=== PATIENT | male | born 1950 ===

== ENCOUNTER 2017-10-13 05:05 | Day surgery (SDC) | payer MEDICARE, OTHER ==
[~2017-10-13] VITALS: Ht 175.3 cm; Wt 64.4 kg
[~2017-10-13 05:05] MED LIST: ASPI-1471 PO; CALC-852 PO; GABA-549 PO; HYDR-2966 PO; LISI-374 PO; OMEP10SU PO; TAMS0.4C70 PO; [UNRECOGNIZED DRUG - CODE] PO
[2017-10-13] MEDS ORDERED: ROPIVACAINE 0.2% 20 ML VIAL ONE (06:38)
[2017-10-13] MEDS ORDERED: BETAMETHASONE/ACETATE 6 MG/1ML ONE (06:38)
[2017-10-13] MEDS ORDERED: NEOMYCIN/POLYMYX/BACITR 30 GM TP ONE (06:38)
[2017-10-13] MEDS ORDERED: LIDOCAINE 1%MDV(*)200 MG/20 ML 1 ML ONE (06:38)
[2017-10-13] MEDS ORDERED: fentaNYL CITR 100 MCG/2 ML AMP ONE ×2 (07:36→12:57)
[2017-10-13 08:35] VITALS: BP 138/77
[2017-10-13] MEDS ORDERED: FAMOTIDINE 20 MG TAB PO ONE (09:30)
[2017-10-13] MEDS ORDERED: CELECOXIB 200 MG CAP PO ONE (09:30)
[2017-10-13] MEDS ORDERED: ceFAZolin(*) 1 GM VIAL 1 GM in NS(*) 0.9% 100 ML ADDVANT BAG 100 ML IVPB ONE (09:30)
[2017-10-13] MEDS ORDERED: MIDAZOLAM 2 MG/2 ML VIAL IVP PRN (09:30)
[2017-10-13] MEDS ORDERED: NORMOSOL R SOLN(*) 1000 ML BAG 1,000 ML IV PRN (09:30)
[2017-10-13] MEDS ORDERED: LIDOCAINE/SOD BICARB 8.4% SYR ID ONE (09:30)
[2017-10-13] MEDS ORDERED: ONDANSETRON 4 MG/2 ML VIAL ONE (10:19)
[2017-10-13] MEDS ORDERED: PROPOFOL EMUL(*) 10MG/ML 20 ML 20 ML ONE (10:19)
[2017-10-13] MEDS ORDERED: LIDOCAINE MPF 1% 5 ML VIAL ONE (10:19)
[2017-10-13] MEDS ORDERED: DEXAMETHASONE SOD PHOS 10MG/ML ONE (10:19)
[2017-10-13] MEDS ORDERED: ePHEDrine 25 MG/5 ML DISP.SYR IVP ONE (11:00)
[2017-10-13] MEDS ORDERED: HYDR-385 PO (13:06)
[2017-10-13] MEDS ORDERED: CEPH250C37 PO (13:07)
[2017-10-13] MEDS ORDERED: APAP/HYDROCODONE 325/5 TAB ONE (13:41)
[2017-10-13 13:50] VITALS: BP 117/67
[2017-10-13 14:20] VITALS: BP 115/62
[2017-10-13 14:32] VITALS: BP 119/69
[2017-10-13 14:34] VITALS: BP 112/73
[2017-10-13] MEDS ORDERED: CEPHALEXIN MONO 500 MG CAP PO ONE (14:55)
--- NOTE | 2017-10-14 04:39 | OPERATIVE REPORT 1 ---
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 PROCEDURE PERFORMED 1. Right steroid injection under fluoroscopic guidance at basal joint using 6 mg of betamethasone and 1 mL of lidocaine. 2. Right long metacarpal phalangeal arthroplasty using size 20 PyroCarbon proximal implant and size 20 PyroCarbon distal implant, uncemented. ESTIMATED BLOOD LOSS Minimal. IVF 1200. TOURNIQUET TIME 63 at 250. SPECIMENS No specimens. COMPLICATIONS No complications. IMPLANT Implants previously noted. SUMMARY OF PROCEDURE The patient was brought into the operating room, placed on the OR table in the supine position. After obtaining adequate general anesthesia, the right upper extremity was prepped and draped in usual sterile fashion. The limb was exsanguinated and tourniquet was inflated to 250 mmHg. We used the fluoroscope to guide a 25 gauge needle into the right basal joint. We got good distention and back flow into the syringe, confirming intraarticular placement, and placed approximately 80% of the solution before the back tension in the joint suggested it was completely full. The fluoroscope confirmed distention of the joint as well. For the long MCP joint procedure, an incision was made in the skin, deepened through skin and subcutaneous tissue to expose the overlying tendon. The tendon was split longitudinally and dissected away from the underlying capsule, at which point the capsule was incised at a separate layer. The joint fluid was clear. There was quite a bit of synovium that was debrided with a rongeur. I assessed the collateral ligaments and found them competent. We started with the initial awl on the metacarpal phalangeal joint, going up into the metacarpal. This was then followed by an alignment guide. Under fluoroscopic guidance, we made our initial 27-degree back cut just distal to the collateral ligaments. I did remove some additional osteophytes on the dorsal surface. The head was removed, and then we proceeded to broach up to size 20. It probably could have gone larger than this, but I was not sure if the distal portion would go larger, so we stopped, and moved onto the proximal phalanx. There was dorsal erosive change. We were not able to get the starting awl going on this, so we ended up having to use a drill to get started , and then a alana. The blunt leader tip alana was used to create a square opening, and then we started to use the saw cut guide initially. We cut right at the margin of the dorsal erosion, and then removed a portion volarly to create a flat cut. We then proceeded to broach up to a size 20, which did require a mallet to get that last portion in. It was quite tight. We checked x -rays with the broach in place, and it looked like we had good fit and fill distally, so we would most likely not go any higher proximally. The trials were placed. We checked the collateral ligaments and found them to be competent. There was quite a bit of osteophyte formation inferior to the metacarpal head implant as we usually see, so I left the implant in place and marked the periphery of the bone, leaving about a 1 mm to 2 mm gap. I used an osteotome to create a smile shaped split, removing some of the inferior osteophyte material. Some of it was left stuck to the capsule, but it was free from the bone, and that would allow the proximal phalangeal component to slide down along the head without impinging. I did not want to dig down inside the tissues to remove that additional bone, as I was fearful that it would potentially damage the flexor tendon or the nerves. We then removed the trial implants and irrigated both sites before aspirating it dry and then implanting the two PyroCarbon implants. X-rays were taken to confirm position. I was able to hyperextend to approximately 10 degrees, and then flex easily down to 90 , and there was no gapping to suggest impingement. The wound was irrigated again. Collateral ligaments were tested one last time and found to be competent. We then closed in layers, beginning with a 4-0 Vicryl for the capsule irrigation and then 4-0 FiberWire for the tendon, irrigation and then deflation of the tourniquet followed by bipolar cautery for hemostasis, and then closure of skin with nylon with a local injection given. He was given a dry sterile dressing and an ulnar gutter split, holding the long, ring and small in full extension at the MP joint, but allowing for interphalangeal joint flexion. MTDD
== END 2017-10-13 13:50 | disposition home or self-care (01) ==
LOC: OR 05:05
PROVIDERS: ATTEND Orthopaedic Surgery Hand Surgery
DX: M19.041 Primary osteoarthritis, right hand (principal)
CPT/HCPCS: 26531; A4565; A9270; J0690; J0702; J1100; J2001; J2405; J2704; J2795; J3010; J7050; L8630